=== PATIENT | male | born 1985 | race Caucasian/White ===

== ENCOUNTER 2019-02-06 13:46 | Emergency (ER) | payer MEDICAID, OTHER ==
[~2019-02-06] VITALS: Ht 188 cm; Wt 113.6 kg
--- NOTE | 2019-02-06 14:01 | NUR ---
JUD GALVAN, CHARGE AT BEDSIDE.
--- NOTE | 2019-02-06 14:01 | NUR ---
JUD CHARGE NURSE AT TRIAGE, TO OVER FLOW.
--- NOTE | 2019-02-06 14:11 | NUR ---
PT CHECKED IN KNIFE AND 2 LIGHTERS WITH SECURITY. PT TO OVER FLOW BY GOPAL ZHU.
--- NOTE | 2019-02-06 14:30 | NUR ---
Pt admitted to overflow as a walkin for depression and suicidal thoughts with plan to overdose. Pt cooperative with admission process.
[2019-02-06 15:17] LABS: BASOPHILS # (AUTO) 0.1 X10'3 (0-0.2); BASOPHILS % (AUTO) 1.2 % (0-1); EOSINOPHILS # (AUTO) 0.2 X10'3 (0-0.9); EOSINOPHILS % (AUTO) 2.2 % (0-6); HEMATOCRIT 36.8 % (42.0-52.0); HEMOGLOBIN 12.6 g/dl (14.0-17.9); LYMPHOCYTES # (AUTO) 1.9 X10'3 (1.1-4.8); LYMPHOCYTES % (AUTO) 25.2 % (21-51); MEAN CORPUSCULAR HEMOGLOBIN 28.2 PG (27.0-31.0); MEAN CORPUSCULAR HGB CONC 34.2 g/dL (33.0-36.5); MEAN CORPUSCULAR VOLUME 82.4 FL (78-98); MEAN PLATELET VOLUME 8.6 FL (7.4-10.4); MONOCYTES # (AUTO) 0.7 X10'3 (0-0.9); MONOCYTES % (AUTO) 9.5 % (2-12); NEUTROPHILS # (AUTO) 4.6 X10'3 (1.8-7.7); NEUTROPHILS % (AUTO) 61.9 % (42-75); PLATELET COUNT 280 X10'3 (140-440); RED BLOOD COUNT 4.46 X10'6 (4.70-6.10); RED CELL DISTRIBUTION WIDTH 13.6 % (11.5-14.5); WHITE BLOOD COUNT 7.5 X10'3 (4.5-11.0)
[2019-02-06 15:23] LABS: URINE AMPHETAMINE SCREEN NEGATIVE (Neg); URINE BARBITUATE SCREEN NEGATIVE (Neg); URINE BENZODIAZEPINES SCREEN NEGATIVE (Neg); URINE CANNABINOID SCREEN POSITIVE (Neg); URINE COCAINE SCREEN NEGATIVE (Neg); URINE METHADONE SCREEN NEGATIVE (Neg); URINE OPIATE SCREEN NEGATIVE (Neg); URINE PHENCYCLIDINE SCREEN NEGATIVE (Neg)
[2019-02-06 15:32] LABS: ALANINE AMINOTRANSFERASE 26 U/L (12-78); ALBUMIN 3.7 G/DL (3.4-5.0); ALBUMIN/GLOBULIN RATIO 1.2 (1.1-1.5); ALKALINE PHOSPHATASE 53 IU/L (46-116); ANION GAP 9 (8-16); ASPARTATE AMINO TRANSFERASE 22 U/L (10-37); BILIRUBIN,TOTAL 0.3 MG/DL (0.1-1.0); BLOOD UREA NITROGEN 7 MG/DL (7-18); BUN/CREATININE RATIO 8.2 (5.4-32.0); CALCIUM 8.5 MG/DL (8.5-10.1); CHLORIDE 106 MMOL/L (99-107); CREATININE 0.85 MG/DL (0.60-1.10); ETHANOL < 0.010 GM/DL (0.0-0.010); GLUCOSE 114 MG/DL (70-104); POTASSIUM 3.5 MMOL/L (3.5-5.1); SODIUM 141 MMOL/L (135-145); TOTAL CARBON DIOXIDE 25.8 MMOL/L (24-32); TOTAL PROTEIN 6.8 G/DL (6.4-8.2); eGFR > 90 ML/MIN
--- NOTE | 2019-02-06 17:00 | NUR ---
pt resting quietly in bed without complaints.
[2019-02-06] MEDS ORDERED: BENZ2TAB7 PO ×2 (18:40→23:04)
[2019-02-06] MEDS ORDERED: LORA10TA7 PO ×3 (18:40→23:04)
--- NOTE | 2019-02-06 20:00 | NUR ---
went in and performed a quick assessment on pt, talked with pt regarding how he was feeling, pt states "he still has suicidal feelings, his plan was/is to cut his wrist with a knife". pt states "he has tried it before but it hurt to bad." pt also mentioned how he was recently released from [facility] and he did not like how he was treated over there. Pt states how he would like to go back to [place] not because he has support over there but because he knows the resources over there better and feels he would be able to stay clean from drugs and alcohol better over there.
[2019-02-06] MEDS ORDERED: LORazepam 1 MG tablet PO ONE (21:40)
--- NOTE | 2019-02-06 21:45 | NUR ---
pt requested sleep aid after getting back from restroom I was able to get 1mg PO Ativan ordered, gave to pt.
--- NOTE | 2019-02-07 05:41 | NUR ---
pt is resting in bed in no apparent distress on RA
--- NOTE | 2019-02-07 06:32 | NUR ---
Client is sleeping peacefully on right side with no signs of Distress. Respirations are even and unlabored.
[2019-02-07] MEDS: benztropine 1mg tablet PO SCH (08:25)
[2019-02-07] MEDS: loratadine 10mg tablet PO SCH (08:25)
--- NOTE | 2019-02-07 08:32 | NUR ---
Client up to the bathroom
--- NOTE | 2019-02-07 09:29 | NUR ---
Pt asleep on right side in no apparent distress. Respirations are even and unlabored.
--- NOTE | 2019-02-07 10:25 | NUR ---
Up to the bathroom
--- NOTE | 2019-02-07 11:20 | NUR ---
Pt becoming verbally agitated about not being evaluated by [facility] yet.
--- NOTE | 2019-02-07 11:49 | NUR ---
UP TO BR [facility] NO NEEDS AT THIS TIME
--- NOTE | 2019-02-07 13:00 | NUR ---
Kristy from [facility] at bedside
--- NOTE | 2019-02-07 14:55 | NUR ---
Pt in upbe mood loooking forward to going to a psychiatric hospital.
--- NOTE | 2019-02-07 16:45 | NUR ---
Pt coloring a picture of a cat. Friendly and upbeat
--- NOTE | 2019-02-07 17:50 | NUR ---
Client staes he is feeling manic. Offered to let him pace.
--- NOTE | 2019-02-07 19:10 | NUR ---
Patient is sitting up in bed. In view from the nursing station. Patient is well oriented. He states he is manic, suicidal, and plans to kill self if released. 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 Patient states he is Schizophrenic and Bipolar. He hears mumbling that is mixed with occasional words such as "looser, chicken, kill myself, you are a screw up, you take up space." Patients plan is to use a knife or use pills to kill himself. Patient was recently released from [facility], he was noncompliant with discharge instructions. Patient states he wants to go to a rehab unit. Patient is on no psych medications here. He used none on the streets. 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
[2019-02-07] MEDS: LORazepam 1 MG tablet PO PRN (20:35)
[2019-02-07] MEDS ORDERED: haloperidol 5mg tablet PO ONE (21:00)
--- NOTE | 2019-02-07 21:09 | NUR ---
Patient was given Haldol and Atilvan. A sandwich was provided at patient request. He is cooperative with staff.
--- NOTE | 2019-02-08 07:00 | NUR ---
Patient resting in bed. No apparent sign or symptoms of distress or problems.
[2019-02-08] MEDS: loratadine 10mg tablet PO SCH (08:25)
[2019-02-08] MEDS: benztropine 1mg tablet PO SCH (08:26)
--- NOTE | 2019-02-08 08:35 | NUR ---
Received report on patient. No S/S of distress or problems noted. No behavioral issues. Compliant with medication and assessment.
--- NOTE | 2019-02-08 08:56 | NUR ---
Patient woke for am meal and aseesment. Resting with no S/S of distress or problems. No behavioral issues.
--- NOTE | 2019-02-08 10:58 | NUR ---
Currently resting in bed with no somatic complaints. No behavioral issues noted.
--- NOTE | 2019-02-08 12:59 | NUR ---
Resting in bed with eyes closed with even, unlabored respirations noted. Woke for lunch. Compliant weith care and no behavioral issues have been noted.
--- NOTE | 2019-02-08 13:06 | NUR ---
Lunch served to patient.
[2019-02-08] MEDS: LORazepam 1 MG tablet PO PRN ×2 (14:32→20:49)
--- NOTE | 2019-02-08 14:36 | NUR ---
Atvan 1 mg po given for c/o "anxiety" at 1430 hours. Client states that combination of Haldol and Ativan worked "very well" and he would like to continue with the same medications if possible. There have been no behavioral issues with this client as of this writing.
--- NOTE | 2019-02-08 14:54 | NUR ---
Spoke with Mariela from [facility] in [place]. Completed assessment over the phone for placement at [facility] tomorrow. Currently, there are no beds available but this client is first to be taken once bed is available at [facility]. Mariela requested that a UA and a TSH test be conducted prior to patient being accepted. Fax number for Mariela at [facility] is [phone].
--- NOTE | 2019-02-08 15:43 | NUR ---
Resting in bed on left side. Good effect from PRN of Ativan. No behavioral issues.
--- NOTE | 2019-02-08 17:33 | NUR ---
Client verbalizes that he wants to be accepted to an, "inpatient program". He desires stability on medications and is willing to do, "what I need to do" to stay in treatment. Patient contracts for safe unit behaviors and will summon staff if he is unable to control impulses to cause self harm. Client has rested in his bed the majority of this shift. No behavioral issues this shift.
--- NOTE | 2019-02-08 17:45 | NUR ---
Client currently resting in bed with no somatic complaints. Client discussed the need for inpatient placement as he feels unstable without his known drug regimen. No behavioral issues this shift. PRN of Ativan given once this shift for anxiety with good effect.
[2019-02-08 17:47] LABS: CLARITY,URINE CLEAR (Clear); COLOR,URINE STRAW (Yellow); GLUCOSE, URINE NEGATIVE (Neg); KETONES,URINE NEGATIVE (Neg); LEUKOCYTE ESTERASE ,URINE NEGATIVE (Neg); NITRITES, URINE NEGATIVE (Neg); OCCULT BLOOD,URINE NEGATIVE (Neg); PROTEIN,URINE NEGATIVE (Neg); UROBILINOGEN,URINE 0.2 E.U/dL (0.2-1.0)
[2019-02-08 17:48] LABS: UA COLLECTION TYPE CLN CATCH MIDSTREAM
--- NOTE | 2019-02-08 18:30 | NUR ---
Patient is laying in bed on his right side. He is awake and well oriented. Patient complains of hearing some mumbling. He denies other hallucinations. Patients affect is flat. Patient speaks full sentences, normal rate and tone. S/I is still present, patient states not here however, he is concerned that he is at self risk if departed to the streets. Patient is cooperative with staff. Patient states nightime Haldol has decreased his voices and allowed him to sleep.
--- NOTE | 2019-02-08 20:51 | NUR ---
Patient given Ativan for anxiety along with his nightly Haldol. He lays down in preperation for sleep. This patient has been medication compliant.
[2019-02-08] MEDS ORDERED: haloperidol 5mg tablet PO ONE (21:00)
--- NOTE | 2019-02-08 21:04 | NUR ---
Labs sent to [facility] as per request.
--- NOTE | 2019-02-09 07:24 | NUR ---
Patient is sleeping peacefully, lying on left side.
[2019-02-09] MEDS: loratadine 10mg tablet PO SCH (08:05)
[2019-02-09] MEDS: benztropine 1mg tablet PO SCH (08:05)
--- NOTE | 2019-02-09 08:15 | NUR ---
Up for breakfast, states difficult sleep throughout the evening. States he remains suicidal with plan to cut wrists with his knife. Ate 100% of breakfast, is hopeful he will be placed somewhere today.
--- NOTE | 2019-02-09 09:14 | NUR ---
Patient resting quietly, lying on right side, no distress noted.
[2019-02-09] MEDS: LORazepam 1 MG tablet PO PRN (10:26)
--- NOTE | 2019-02-09 10:27 | NUR ---
Patient was awakened by new patient on the unit. Requested Ativan as commotion triggered increased anxiety. Patient cooperative and appropriate.
--- NOTE | 2019-02-09 11:21 | NUR ---
Resting comfortably, appears less anxious, comotion on the unit has been addressed.
--- NOTE | 2019-02-09 13:25 | NUR ---
Patient called [facility] and set up a phone interview for tomorrow at 1:00pm. He states they will charge him $800.00/month which he is happy to pay for the opportunity to get clean. Was informed about the potential for MH placement today. Has been resting comfortably without any further c/o increased anxiety/agitation.
--- NOTE | 2019-02-09 17:38 | NUR ---
Patient has been resting comfortably, significant change in affect following phone call with [facility]. Has been accepted to [facility] with plan for transfer this evening. currently resting in bed lying on left side without s/s of distress.
[2019-02-09 18:02] VITALS: BP 115/77
--- NOTE | 2019-02-09 19:00 | NUR ---
The patient is resting on his right side with his eyes closed. No s/s of distress.
--- NOTE | 2019-02-09 20:26 | NUR ---
[employer] set key driver here to take patient. Belongings returned.
== END 2019-02-09 20:46 ==
LOC: ER 13:47
DX: R45.851 Suicidal ideations (principal); F32.9 Major depressive disorder, single episode, unspecified; Z88.5 Allergy status to narcotic agent; Z79.899 Other long term (current) drug therapy
CPT/HCPCS: 36415; 80053; 80305; 80320; 81003; 84443; 85025; 99285